=== PATIENT | male | born 1955 | race Asian ===

== ENCOUNTER 2016-11-04 11:05 | Emergency (ER) | payer MEDICAID ==
[~2016-11-04] VITALS: Ht 162.6 cm; Wt 54.5 kg
[2016-11-04] MEDS ORDERED: ALLO100T PO (11:18)
[2016-11-04] MEDS ORDERED: CYCLOBENZAPRINE HCL 10 MG TABLET PO ONE (11:45)
[2016-11-04] MEDS ORDERED: HYDROCODONE/ACETAMINOPHEN 5-325 MG TABLET PO ONE (11:45)
[2016-11-04 13:06] VITALS: BP 144/81
== END 2016-11-04 13:12 | disposition home or self-care (01) ==
LOC: EMS 11:07
DX: M62.838 Other muscle spasm (principal); M10.9 Gout, unspecified
CPT/HCPCS: 99283